=== PATIENT | female | born 1945 | race Caucasian/White ===

== ENCOUNTER → 2023-11-26 13:48 | Outpatient (CLI) | payer MEDICARE, SELFPAY ==
--- NOTE | 2023-11-26 13:52 | DI.RAD.S_ITS ---
PROCEDURE: XR LUMBAR SPINE MIN 4V INDICATIONS: low back pain TECHNIQUE: 5 views of the lumbar spine were acquired, including bilateral oblique views. COMPARISON: [facility], CHRISTINE, MRI L-SPINE W/O CONTRAST, 10/25/2021, 15:12. [facility], CHRISTINE, XR L-SPINE 2-3V, 05/10/2021, 17:16. [facility], RG, XR L-SPINE 2-3V, 08/13/2019, 8:53. FINDINGS: Bones: 5 [id number] vertebrae are present. There is mild levoscoliosis. Grade 1 anterolisthesis of L4 on L5. No vertebral body compression fractures. No suspicious bony lesions. Multilevel degenerative disc disease, moderate at L1-L2, mild at other levels. Moderate facet arthropathy at L3-L4, L4-L5 and L5-S1. Soft tissues: Overlying bowel gas pattern is normal. No suspicious soft tissue calcifications. Oblique images: No pars defects. IMPRESSION: 1. 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 2. Mild levoscoliosis. 3. Grade 1 anterolisthesis of L4 on L5. No pars defects. Dictated by: Virginia Romo M.D. on 11/27/2023 at 8:07 Approved by: Virginia Romo M.D. on 11/27/2023 at 8:13
== END ==
PROVIDERS: PCP Physician Assistant Medical; Referring Provider Anesthesiology; Visit Provider Anesthesiology
DX: M48.062 Spinal stenosis, lumbar region with neurogenic claudication (principal); M47.26 Other spondylosis with radiculopathy, lumbar region; M47.27 Other spondylosis with radiculopathy, lumbosacral region; M51.16 Intervertebral disc disorders with radiculopathy, lumbar region; M43.16 Spondylolisthesis, lumbar region; M41.9 Scoliosis, unspecified; R26.81 Unsteadiness on feet; M54.50 Low back pain, unspecified; G89.29 Other chronic pain
CPT/HCPCS: 72110; 99214